=== PATIENT | female | born 1995 | race Caucasian/White ===

== ENCOUNTER 2016-11-07 17:03 | Emergency (ER) | payer OTHER ==
[2016-11-07 17:22] VITALS: BP 120/74; PULSE 64; TEMP 98.3; BMI 24.4
[2016-11-07] MEDS ORDERED: TETRACAINE 0.5% OPHTH SOLN 2 ML BOTTLE OD ONE (18:37)
--- NOTE | 2016-11-07 18:37 | PDOC ---
History of Present Illness - General Chief Complaint: Eye Problem Stated Complaint: EYE PROBLEM Time Seen by Provider: 11/07/16 17:56 History Source: Patient Exam Limitations: No Limitations - History of Present Illness Initial Comments: 11/07/16 18:41 My Chief Complaint: Right eye redness, tearing, pain History of present illness: Patient is a 21-year-old female with no significant medical history here today after today complaining of discomfort in her right eye burning sensation with redness, photophobia, tearing that started yesterday and has gotten worse. Pt. reports that she went jet skiing yesterday does not remember getting anything in her eye except for water and afterwards patient noticed a yellowish discharge from her right eye. Patient reports being seen at [facility] earlier today and was given a prescription for tobramycin 0.3% 1 drop 3 times a day in right eye. Patient reports that she does not feel any better and symptoms continue. Patient reports that her vision is slightly blurred presently. Patient does not wear contacts. Patient has false eyelashes however they have been in for one month. She reports rubbing her eye often. 11/07/16 19:02 11/07/16 19:06 Timing/Duration: getting worse Severity: moderate (burning rt. eye ) Associated Symptoms: reports: other (rt., eye burning sensation with photophobia , tearing) Past History - Past Medical History Allergies/Adverse Reactions: Allergies Allergy/AdvReac Type Severity Reaction Status Date / Time No Known Allergies Allergy Verified 11/07/16 17:22 Home Medications: Ambulatory Orders Erythromycin 0.5% Eye Ointment [Erythromycin 0.5% Eye Ointment -] 1 applic OD QID #1 tube 11/07/16 Other medical history: PATIENT DENIES MEDICAL HX - Psycho/Social/Smoking Cessation Hx Suicidal Ideation: No Smoking History: Never smoked Hx Alcohol Use: Yes Drug/Substance Use Hx: No Review of Systems - Review of Systems Able to Perform ROS?: Yes Constitutional: No: Symptoms Reported HEENTM: Yes: Eye Pain (right ), Blurred Vision (slight), Tearing (right ), Other (sclera redness rt. ). No: Recent change in vision, Double Vision Respiratory: No: Symptoms reported Cardiac (ROS): No: Symptoms Reported ABD/GI: No: Symptoms Reported : No: Symptoms Reported Musculoskeletal: No: Symptoms Reported Integumentary: No: Symptoms Reported Neurological: No: Symptoms reported *Physical Exam - Vital Signs Last Vital Signs Temp Pulse Resp BP Pulse Ox 98.3 F 64 16 120/74 100 11/07/16 17:16 11/07/16 17:16 11/07/16 17:16 11/07/16 17:16 11/07/16 17:16 - Physical Exam General Appearance: Yes: Appropriately Dressed HEENT: positive: Photophobia (right, tearing), Other (sclera redness right, no edema of eyelid) Neck: negative: Lymphadenopathy (R), Lymphadenopathy (L) Respiratory/Chest: positive: Lungs Clear, Normal Breath Sounds. negative: Chest Tender, Respiratory Distress Cardiovascular: positive: Regular Rhythm, Regular Rate, S1, S2 Procedures - Consent Consent obtained: From Patient - Additional Procedures Progress: 11/07/16 19:06 Tetracaine 0.5% opth halley 1 drop applied rt. eye, fluorcene stain applied, corneal abrasion noted at 8 'oclock no foreign body noted 11/07/16 19:06 Medical Decision Making - Medical Decision Making 11/07/16 19:03 Patient is a 21-year-old female with no significant medical history here today after today complaining of discomfort in her right eye burning sensation with redness, photophobia, tearing that started yesterday and has gotten worse. Pt. reports that she went jet skiing yesterday does not remember getting anything in her eye except for water and afterwards patient noticed a yellowish discharge from her right eye. Patient reports being seen at [facility] earlier today and was given a prescription for tobramycin 0.3% 1 drop 3 times a day in right eye. Patient reports that she does not feel any better and symptoms continue. Patient reports that her vision is slightly blurred presently. Patient does not wear contacts. Patient has false eyelashes however they have been in for one month. She reports rubbing her eye often. right eye corneal abrasion ] PLAN: erythromycin 0.5 % optho oint 1/2 inch and conjunctiva sac applied here then patient instructed to apply 4 times a day 5 days Patient instructed not to use tobramycin eyedrops as previously prescribed at [facility] Follow up with processing talc and borate supervisor tomorrow snellen both eyes 20/25, rt. eye 20/50 and left eye 20/30 *DC/Admit/Observation/Transfer Diagnosis at time of Disposition: Corneal abrasion, right Qualifiers: Encounter type: initial encounter Qualified Code(s): S05.01XA - Injury of conjunctiva and corneal abrasion without foreign body, right eye, initial encounter - Discharge Dispostion Disposition: HOME Condition at time of disposition: Stable - Prescriptions Prescriptions: Erythromycin 0.5% Eye Ointment [Erythromycin 0.5% Eye Ointment -] 1 applic OD QID #1 tube - Referrals Referrals: Chase Read [Staff Physician] - - Patient Instructions Additional Instructions: Follow-up with processing talc and borate supervisor tomorrow if pain continues and right eye Do not rub your right eye as this will cause further irritation and redness Return to emergency room only if new symptoms develop Do not use tobramycin ophthalmic solution Patient voiced understanding of discharge instructions and all questions were answered
[2016-11-07] MEDS ORDERED: ERYTHROMYCIN 0.5% OPHTHALMIC OINTMENT 3.5 GM TUBE ONE (18:39)
[2016-11-07] MEDS ORDERED: ERYTHROMYCIN 0.5% OPHTHALMIC OINTMENT 3.5 GM TUBE OD ONE (18:39)
== END 2016-11-07 19:18 | disposition home or self-care (01) ==
LOC: JERFT 17:03
PROC: 4A07X0Z Measurement of Visual Acuity, External Approach (ICD-10-PCS; principal; 2016-11-07)
DX: S05.01XA Injury of conjunctiva and corneal abrasion without foreign body, right eye, initial encounter (principal); X58.XXXA Exposure to other specified factors, initial encounter; Y93.89 Activity, other specified; Y92.89 Other specified places as the place of occurrence of the external cause
CPT/HCPCS: 99173; 99281-25